=== PATIENT | male | born 1995 | race Caucasian/White ===

== ENCOUNTER 2016-03-21 14:08 | Emergency (ER) | payer OTHER ==
[2016-03-21 14:13] VITALS: TEMP 98.2; O2SAT 96
[2016-03-21] MEDS ORDERED: HYDROmorphONE/DILAUDID 1 MG/ML SYR IVP ONE (15:21)
--- NOTE | 2016-03-21 15:23 | EDPHY ---
H & P Stated Complaint: Skiing accident 1 hour ago. laceration to right head. Time Seen by Provider: 03/21/16 15:16 HPI/ROS: CHIEF COMPLAINT: The head injury HISTORY OF PRESENT ILLNESS: The patient is a 20-year-old healthy man who fell skiing. His ski came off and hit him in the top of the head. Has a small laceration to the crown of his head. No crepitus or deformity. No loss of consciousness. He does have a headache currently. No neck pain. No other injuries. He states the 1 point he did have some bleeding from his nose but that has not stop. He did not have direct impact to his nose. REVIEW OF SYSTEMS: Constitutional: denies: chills, fever, recent illness, recent injury EENTM: denies: blurred vision, double vision, nose congestion Respiratory: denies: cough, shortness of breath Cardiac: denies: chest pain, irregular heart rate, lightheadedness, palpitations Gastrointestinal/Abdominal: denies: abdominal pain, diarrhea, nausea, vomiting, blood streaked stools Genitourinary: denies: dysuria, frequency, hematuria, pain Musculoskeletal: denies: joint pain, muscle pain Skin: denies: lesions, rash, jaundice, bruising Neurological: Headache, denies: numbness, paresthesia, tingling, dizziness, weakness Hematologic/Lymphatic: denies: blood clots, easy bleeding, easy bruising Immunologic/allergic: denies: HIV/AIDS, transplant EXAM: GENERAL: Well-appearing, well-nourished and in no acute distress. HEAD: 2 cm laceration to crown of head, no deformity or crepitus. Bleeding controlled. No confusion, answers all questions appropriately. Mild headache EYES: Pupils equal round and reactive to light, extraocular movements intact, sclera anicteric, conjunctiva are normal. ENT: TMs normal, nares patent, oropharynx clear without exudates. Moist mucous membranes. NECK: Normal range of motion, supple without lymphadenopathy or JVD. LUNGS: Breath sounds clear to auscultation bilaterally and equal. No wheezes rales or rhonchi. HEART: Regular rate and rhythm without murmurs, rubs or gallops. ABDOMEN: Soft, nontender, normoactive bowel sounds. No guarding, no rebound. No masses appreciated. BACK: No CVA tenderness, no spinal tenderness, step-offs or deformities EXTREMITIES: Normal range of motion, no pitting or edema. No clubbing or cyanosis. NEUROLOGICAL: Cranial nerves II through XII grossly intact. Normal speech, normal gait. 5/5 strength, normal movement in all extremities, normal sensation PSYCH: Normal mood, normal affect. SKIN: Warm, dry, normal turgor, no visible rashes or lesions. Source: Patient Exam Limitations: No limitations - Personal History Current Tetanus Diphtheria and Acellular Pertussis (TDAP): Yes - Medical/Surgical History Hx Asthma: No Hx Chronic Respiratory Disease: No Hx Diabetes: No Hx Cardiac Disease: No Hx Renal Disease: No Hx Cirrhosis: No Hx Alcoholism: No Hx HIV/AIDS: No Hx Splenectomy or Spleen Trauma: No - Family History Significant Family History: No pertinent family hx - Social History Smoking Status: Never smoked Alcohol Use: Sober Drug Use: None Constitutional: Initial Vital Signs Temperature (C) 36.8 C 03/21/16 14:09 Heart Rate 63 03/21/16 14:09 Respiratory Rate 18 03/21/16 14:09 Blood Pressure 130/83 H 03/21/16 14:09 O2 Sat (%) 96 03/21/16 14:09 O2 Delivery Mode Room Air Allergies/Adverse Reactions: Sulfa (Sulfonamide Antibiotics) Allergy (Verified 03/21/16 14:12) Medical Decision Making - Diagnostics Imaging: Results: CT scan of the head was obtained. The results of the study are negative for intracranial abnormality. The study was read by Dr. Quentin Mederos. I viewed the images myself on the PACS system. Procedures: Procedure: Laceration repair. Verbal consent was obtained from the patient. The 2 cm scalp laceration was anesthetized with 1% lidocaine with epi and bicarbonate locally infiltrated. The wound was irrigated copiously according to protocol, draped and explored to its base. It was approximately 1/2 cm deep. There were no deep structures involved. No tendon, nerve, or vascular injury was identified when explored. No foreign body was identified. The wound was repaired with 3 nadja. The wound repair was simple without wound margin revisement or multiple flap alignment. The procedure was performed by myself. A dressing was then placed with sterile gauze and bacitracin. ED Course/Re-evaluation: We discussed the CT results. The patient is relieved. Patient tolerated the procedure well. We discussed staple care and follow-up. He is happy with this plan and declines further workup or testing. Additional verbal discharge instructions given. Differential Diagnosis: Partial list of the Differential diagnosis considered include but were not limited to; fracture, intracranial injury, concussion and although unlikely based on the history and physical exam, I also considered neck injury, assault. I discussed these differential diagnoses and the plan with the patient as well as the usual and expected course. The patient understands that the diagnosis is provisional and that in medicine we are not always correct and that further workup is often warranted. Usual and customary warnings were given. All of the patient's questions were answered. The patient was instructed to return to the emergency department should the symptoms at all worsen or return, otherwise to followup with the physician as we discussed. - Data Points Medications Given: Discontinued Medications Diphtheria/Tetanus/Acell Pertussis (Boostrix) 0.5 ml IM .ONCE ONE Stop: 03/21/16 17:06 Last Admin: 03/21/16 17:10 Dose: 0.5 ml Hydromorphone HCl (Dilaudid) 1 mg IVP EDNOW ONE Stop: 03/21/16 15:22 Last Admin: 03/21/16 16:03 Dose: 1 mg Departure - Departure Disposition: Home, Routine, Self-Care Clinical Impression: Concussion Qualifiers: Encounter type: initial encounter Loss of consciousness presence/duration: without LOC Qualifier Code: (S06.0X0A) Concussion without loss of consciousness , initial encounter Scalp laceration Qualifiers: Encounter type: initial encounter Qualifier Code: (S01.01XA) Laceration without foreign body of scalp, initial encounter Condition: Fair Instructions: Concussion (ED), Staple Care (ED) Additional Instructions: Have your nadja removed in 10 days Referrals: NONE *PRIMARY CARE P,. [Primary Care Provider] - As per Instructions
--- NOTE | 2016-03-21 16:10 | CT ---
CT Brain (Without Contrast) 1549 hours History: Head trauma, headache, skiing injury, fall. Comparison: None. Technique: Axial computed tomographic images of the brain without contrast. Dose reduction technique s were utilized. Findings: Ventricles, cisterns, and sulci are normal without atrophy, hydrocephalus, midline shift/h erniation, or epidural/subdural hematomas. No acute intraparenchymal hemorrhage, definite infarct, or mass effect. Bone windows demonstrate no displaced fractures. Paranasal sinuses and mastoid air cell s are clear. Impression: 1. Normal CT brain without contrast. 2. No epidural or subdural hematoma. Findings and recommendations discussed with Emergency Department physician, Dr. Aravind Maguire at 1605 hours today. Final report concurs with initial preliminary interpretation.
[2016-03-21] MEDS ORDERED: TDAP ADULT 0.5 ML VIAL (BOOSTRIX) IM ONE (17:05)
[2016-03-21 17:08] VITALS: BP 128/88; PULSE 71; RESP 16
== END 2016-03-21 17:09 | disposition home or self-care (01) ==
PROC: 0HQ0XZZ Repair Scalp Skin, External Approach (ICD-10-PCS; principal; 2016-03-21)
DX: S06.0X0A Concussion without loss of consciousness, initial encounter (principal); S01.01XA Laceration without foreign body of scalp, initial encounter; Z23 Encounter for immunization; V00.321A Fall from snow-skis, initial encounter; Y99.8 Other external cause status; Y93.23 Activity, snow (alpine) (downhill) skiing, snowboarding, sledding, tobogganing and snow tubing
CPT/HCPCS: 96374; J1170